=== PATIENT | female | born 1945 | race Caucasian/White ===

== ENCOUNTER → 2016-09-10 | Outpatient (CLI) | payer OTHER ==
--- NOTE | 2016-09-10 14:40 | DX ---
Chest, PA and Lateral History: Lymphadenopathy, R591, [id number] Comparison: None Findings: There is interstitial lung disease greatest involving the lower lungs. Perihilar bronchial wall thickening and moderately prominent lung volumes suggest underlying emphysema. There is no mass, adenopathy or pleural effusion. There is biapical pleural parenchymal thickening, likely representi ng scar, although that at the right apex is asymmetrically nodular. Heart size is relatively small an d the peripheral pulmonary vessels are relatively thin, consistent with underlying emphysema, and pot entially pulmonary arterial hypertension. There is no adenopathy or parenchymal mass lesion. There is no focal consolidation or pneumothorax. There is a mild thoracic dextroscoliosis. There is a minimal T8 compression, presumably old. Impression: 1. Interstitial lung disease greatest in the lower lungs, superimposed upon possible emph ysema. 2. Asymmetrical pleural thickening at the right apex. If there are any old outside chest x-rays, we w ould be happy to review them to assess for interval change. If not, recommend chest CT with IV contra st for further evaluation, to evaluate for possible Pancoast tumor. 3. No intrathoracic adenopathy identified. A message was left with Sophie for Dr. Rodríguez at 2:38 PM
== END ==
LOC: FIMAGING 12:47
PROVIDERS: ATTEND Family Medicine
DX: J84.9 Interstitial pulmonary disease, unspecified (principal); J98.4 Other disorders of lung; R59.1 Generalized enlarged lymph nodes

== ENCOUNTER → 2016-12-03 | Outpatient (CLI) | payer OTHER ==
[~2016-12-03] MED LIST: IOPAMIDOL (ISOVUE-300) 100 ML BTL IV ONE
[2016-12-03 13:42] LABS: CREATININE 0.7 mg/dL (0.6-1.0); GLOMERULAR FILTRATION RATE > 60
== END ==
LOC: FIMAGING 12:42
PROVIDERS: ATTEND Family Medicine
DX: R91.8 Other nonspecific abnormal finding of lung field (principal); J43.2 Centrilobular emphysema; J84.9 Interstitial pulmonary disease, unspecified
CPT/HCPCS: 71260; Q9967

== ENCOUNTER → 2017-10-24 | Outpatient (CLI) | payer OTHER | LOC: FIMAGING 12:07 | PROVIDERS: ATTEND Internal Medicine Pulmonary Disease | DX: R91.1 Solitary pulmonary nodule (principal); J84.10 Pulmonary fibrosis, unspecified; J43.2 Centrilobular emphysema ==

== ENCOUNTER → 2018-11-13 | Outpatient (CLI) | payer OTHER | LOC: CIMAGING 13:10 | PROVIDERS: ATTEND Internal Medicine Pulmonary Disease | DX: R91.1 Solitary pulmonary nodule (principal); J43.9 Emphysema, unspecified; J84.10 Pulmonary fibrosis, unspecified | CPT/HCPCS: 71250-PO ==